=== PATIENT | male | born 1970 | race African-American/Black ===

== ENCOUNTER 2020-11-23 16:56 | Emergency (ER) | payer OTHER ==
[~2020-11-23] VITALS: Ht 172.7 cm; Wt 90.7 kg
[2020-11-23 17:52] VITALS: BP 137/99
--- NOTE | 2020-11-23 17:55 | NUR ---
triaged and waiting in tent.
[2020-11-23 17:56] VITALS: BP 137/99
--- NOTE | 2020-11-23 18:45 | NUR ---
Patient discharged with v/s stable. Written and verbal after care instructions given and explained. Patient alert, oriented and verbalized understanding of instructions. Ambulatory with steady gait. All questions addressed prior to discharge. ID band removed. Patient advised to follow up with PMD. Rx of ibprofen, promethazine given. Patient educated on indication of medication including possible reaction and side effects. Opportunity to ask questions provided and answered.
--- NOTE | 2020-11-24 17:53 | NUR ---
Covid results received from lab. Results = POSITIVE. Hard copy requested from lab and placed in infection controls mailbox.
== END 2020-11-23 18:45 | disposition home or self-care (01) ==
LOC: MED 16:56
DX: B34.9 Viral infection, unspecified (principal); Z20.828 Contact with and (suspected) exposure to other viral communicable diseases; E11.9 Type 2 diabetes mellitus without complications
CPT/HCPCS: 99283; U0003